=== PATIENT | male | born 1990 | race African-American/Black ===

== ENCOUNTER 2025-07-12 01:17 | Emergency (ER) | payer OTHER ==
[~2025-07-12] VITALS: Ht 182.9 cm; Wt 107.0 kg
[2025-07-12 01:33] VITALS: O2SAT 98
[2025-07-12 02:47] LABS: BASOPHILS % 0.4 % (0.0-2.0); MONOCYTES % 6.9 % (2.0-8.0)
[2025-07-12 02:55] LABS: EOSINOPHILS % 1.0 % (0.0-5.0); HEMATOCRIT. 40.2 % (42.0-52.0); HEMOGLOBIN. 13.5 g/dL (14.0-18.0); LYMPHOCYTES % 29.8 % (20.0-50.0); MEAN PLATELET VOLUME 9.1 fl (7.4-10.4); NEUTROPHILS % 61.9 % (40.0-76.0); PLATELET 185 x1000/uL (130-400); RED BLOOD CELL COUNT 4.50 mill/uL (4.7-6.1); RED CELL DISTRIBUTION WIDTH 12.8 % (11.6-14.6)
[2025-07-12 02:59] LABS: CREATININE 1.0 mg/dL (0.6-1.3)
[2025-07-12 03:00] LABS: ETHANOL BLOOD < 10 mg/dL (<10); PROTEIN TOTAL 7.3 g/dL (6.0-8.3); UREA NITROGEN BLOOD 12 mg/dL (9-23)
[2025-07-12 03:01] LABS: ASPARTATE AMINOTRANSFERASE 27 IU/L (<34)
[2025-07-12 03:02] LABS: BILIRUBIN DIRECT 0.3 mg/dL (<=3.0); BILIRUBIN TOTAL 0.8 mg/dL (0.1-1.0)
[2025-07-12 03:39] LABS: *AMPHETAMINES SCREEN URINE NEGATIVE (NEGATIVE); *BARBITURATES SCREEN URINE NEGATIVE (NEGATIVE); *BENZODIAZEPINES SCREEN URINE NEGATIVE (NEGATIVE); *COCAINE SCREEN URINE NEGATIVE (NEGATIVE); METHADONE URINE SCREEN NEGATIVE (NEGATIVE); OPIATES URINE SCREEN NEGATIVE (NEGATIVE)
[2025-07-12 03:40] LABS: CANNABINOID URINE SCREEN NEGATIVE (NEGATIVE); ECSTASY MDMA SCREEN URINE NEGATIVE (NEGATIVE); PHENCYCLIDINE URINE SCREEN NEGATIVE (NEGATIVE)
[2025-07-12 03:45] LABS: CLARITY URINE CLEAR (CLEAR); COLOR URINE YELLOW (YELLOW)
[2025-07-12 03:47] LABS: GLUCOSE URINE NEGATIVE (NEGATIVE); KETONES URINE NEGATIVE (NEGATIVE); LEUKOCYTE ESTERASE URINE NEGATIVE (NEGATIVE); NITRITE URINE NEGATIVE (NEGATIVE); OCCULT BLOOD URINE TRACE (NEGATIVE); PH URINE 6.0 (4.5-8.0); PROTEIN URINE NEGATIVE (NEGATIVE); SPECIFIC GRAVITY URINE 1.020 (1.005-1.030); UROBILINOGEN URINE 0.2 E.U./dL (0.2-1.0)
[2025-07-12 04:42] LABS: BACTERIA URINE TRACE; RBC URINE 0-2 /hpf (0-2); SQUAMOUS EPITHELIAL CELL URINE FEW /lpf (RARE/1+); WBC URINE 0-2 /hpf (0-2)
[2025-07-12] MEDS: ARIPIPRAZOLE 5MG TABLET PO SCH (12:33)
[2025-07-12] MEDS ORDERED: DIPHENHYDRAMINE 50MG CAPSULE PO ONE (21:00)
[2025-07-12] MEDS: LORAZEPAM 1MG TABLET PO ONE (21:24)
[2025-07-12] MEDS: OLANZAPINE 5MG TABLET ODT PO ONE (21:24)
[2025-07-12] MEDS: DIPHENHYDRAMINE 25MG CAPSULE PO NR (21:24)
[2025-07-13 13:13] VITALS: BP 142/93; PULSE 72; RESP 17; TEMP 36.7; O2SAT 100
== END 2025-07-13 13:35 ==
LOC: ER 01:17
DX: R45.851 Suicidal ideations (principal); F41.9 Anxiety disorder, unspecified; F25.0 Schizoaffective disorder, bipolar type; Z79.899 Other long term (current) drug therapy; Z20.822 Contact with and (suspected) exposure to COVID-19
CPT/HCPCS: 80076; 80305; 80048; 81003; 80307; 80329; 80320; 85025; 36415; 99285; 87426; Q0163; G0480